=== PATIENT | male | born 1945 | race Caucasian/White ===

== ENCOUNTER 2022-10-21 16:33 | Observation (INO) | payer MEDICARE ==
[~2022-10-21] VITALS: Ht 177.8 cm; Wt 72.6 kg
[2022-10-21 19:54] LABS: BASOPHILS ABSOLUTE AUTO 0.06 K/mm3 (0.00-0.23); BASOPHILS PERCENT AUTO 1 % (0-2); EOSINOPHILS ABSOLUTE AUTO 0.05 K/mm3 (0.00-0.68); EOSINOPHILS PERCENT AUTO 1 % (0-6); Hematocrit 43.6 % (37.0-53.0); Hemoglobin 15.2 g/dL (13.5-17.5); IMMATURE GRAN ABSOLUTE AUTO 0.02 K/mm3 (0.00-0.10); IMMATURE GRAN PERCENT AUTO 0 % (0-1); LYMPHOCYTES ABSOLUTE AUTO 1.34 K/mm3 (0.84-5.20); LYMPHOCYTES PERCENT AUTO 18 % (21-46); MONOCYTES ABSOLUTE AUTO 0.66 K/mm3 (0.16-1.47); MONOCYTES PERCENT AUTO 9 % (4-13); Mean Corpuscular HGB 30.9 pg (26.0-34.0); Mean Corpuscular HGB Conc 34.9 g/dL (31.5-36.5); Mean Corpuscular Volume 89 fL (80-100); Mean Platelet Volume 10.7 fL (9.1-12.4); NEUTROPHILS ABSOLUTE AUTO 5.34 K/mm3 (1.96-9.15); NEUTROPHILS PERCENT AUTO 72 % (41-73); Platelet Count 134 K/mm3 (150-400); RDW Coefficient Variation 12.4 % (11.7-14.2); Red Blood Cell Count 4.92 M/mm3 (4.30-5.90); White Blood Cell Count 7.47 K/mm3 (4.00-11.30)
[2022-10-21] MEDS ORDERED: LISI5 PO (20:06)
[2022-10-21] MEDS ORDERED: LEVSOD25 PO (20:07)
[2022-10-21 20:12] LABS: Albumin, Blood 3.9 g/dL (3.4-5.0); Albumin/Globulin Ratio 1.1 (0.8-1.8); Bilirubin, Total 1.7 mg/dL (0.1-1.0); Calcium, Blood 9.6 mg/dL (8.5-10.1); Creatinine, Blood 1.16 mg/dL (0.60-1.20); Globulin, Blood 3.4 g/dL (2.2-4.0); Potassium, Blood 4.4 mmol/L (3.5-5.5); Total Protein, Blood 7.3 g/dL (6.4-8.2)
[2022-10-21 20:23] LABS: International Normalized Ratio 0.98; Prothrombin Time Results 10.3 Sec (9.7-11.5)
--- NOTE | 2022-10-22 06:44 | NUR ---
ADMITTED S/P FALL WITH DX SAH. A/OX4; CALM AND COOPERATIVE. TELE: SR 70s TO 80s C/O MILD "TOLERABLE" 2/10 PAIN TO L SHOULDER AND SCATTERED BRUISING; PRN TYLENOL GIVEN; ASLEEP AT REASSESSMENT. BASELINE MOBILITY IS IND WITH CANE. SLEEP PROMOTED. CALL LIGHT IN REACH; ENCOURAGED TO MAKE NEEDS KNOWN. BED ALARM SET.
--- NOTE | 2022-10-22 16:35 | NUR ---
SHIFT SUMMARY: NO ACUTE EVENTS. NO S/S OF ETOH W/D YET. NO EVENTS ON TELEMETRY, SR IN THE 60'S. C/O PAIN IN L SHOULDER; MEDICATED WITH TYLENOL WITH RELIEF. NEURO CHECK SHOWS WEAKNESS IN L HAND AND BLE, SLUGGISH 1 MM PUPILS BILATERALLY. DENIES NAUSEA. GETTING UP TO CHAIR AND AMBULATING WITH 1 PERSON, FWW, AND GAIT BELT, SHORT DISTANCES. WORKED WITH PHYSICAL THERAPY.
--- NOTE | 2022-10-22 22:57 | NUR ---
A/OX4; FORGETFUL/ REPETATIVE, CALM AND COOPERATIVE. TELE: SB / SR WITH HR 50s TO 60s C/O MILD "TOLERABLE" 2/10 PAIN TO L SHOULDER AND TO SCATTERED BRUISING; PRN TYLENOL GIVEN; ASLEEP AT REASSESSMENT. 1X ASSIST WITH GAITBELT AND CANE TO BR. SLEEP PROMOTED. CALL LIGHT IN REACH; ENCOURAGED TO MAKE NEEDS KNOWN. BED ALARM SET.
[2022-10-23 11:10] LABS: Albumin, Blood 3.8 g/dL (3.4-5.0); Anion Gap 7 mmol/L (6-16); Blood Urea Nitrogen 25 mg/dL (8-24); Bun/Creatinine Ratio 21.7 (12.0-20.0); CO2, Blood 24 mmol/L (21-32); Calcium, Blood 9.6 mg/dL (8.5-10.1); Chloride, Blood 106 mmol/L (98-108); Creatinine, Blood 1.15 mg/dL (0.60-1.20); Glomerular Filtration Rate 66 (60-); Glucose, Blood 174 mg/dL (70-99); Magnesium, Blood 2.1 mg/dL (1.6-2.4); Phosphorus, Blood 2.3 mg/dL (2.5-4.9); Potassium, Blood 3.8 mmol/L (3.5-5.5); Sodium, Blood 137 mmol/L (136-145)
--- NOTE | 2022-10-23 17:35 | NUR ---
SHIFT SUMMARY- PT IS ALERT PLESANT AND COOPERATIVE. HIS BLOOD PRESSURE WAS ELEVATED THIS MORNING BUT WAS IN THE LOW 100'S SBP, NOTIFIED DR. ARNOLD OF [facility]. WORKED WITH PT THIS AFTERNOON AND TOLERATED WELL. BEDDING CHANGED BUT VT REFUSED A SHOWER THIS SHIFT. HIS BED IS IN THE LOW POSITION AND CALL LIGHT IS WITIN REACH.
--- NOTE | 2022-10-24 05:07 | NUR ---
A/OX4; FORGETFUL/ REPETATIVE, CALM AND COOPERATIVE. TELE: SR WITH HR 60s DENIES PAIN AT THIS TIME. NO S/S OF ALCOHOL WITHDRAWAL PRESENT AT THSI TIME. 1X ASSIST WITH GAITBELT AND CANE TO BR. SLEEP PROMOTED. CALL LIGHT IN REACH; ENCOURAGED TO MAKE NEEDS KNOWN. BED ALARM SET.
[2022-10-24 14:42] LABS: BASOPHILS ABSOLUTE AUTO 0.05 K/mm3 (0.00-0.23); BASOPHILS PERCENT AUTO 1 % (0-2); EOSINOPHILS ABSOLUTE AUTO 0.09 K/mm3 (0.00-0.68); EOSINOPHILS PERCENT AUTO 1 % (0-6); Hematocrit 43.9 % (37.0-53.0); Hemoglobin 14.9 g/dL (13.5-17.5); IMMATURE GRAN ABSOLUTE AUTO 0.03 K/mm3 (0.00-0.10); IMMATURE GRAN PERCENT AUTO 0 % (0-1); LYMPHOCYTES PERCENT AUTO 20 % (21-46); MONOCYTES ABSOLUTE AUTO 0.73 K/mm3 (0.16-1.47); MONOCYTES PERCENT AUTO 10 % (4-13); Mean Corpuscular HGB 30.5 pg (26.0-34.0); Mean Corpuscular HGB Conc 33.9 g/dL (31.5-36.5); Mean Corpuscular Volume 90 fL (80-100); Mean Platelet Volume 10.8 fL (9.1-12.4); NEUTROPHILS ABSOLUTE AUTO 5.19 K/mm3 (1.96-9.15); NEUTROPHILS PERCENT AUTO 68 % (41-73); Platelet Count 130 K/mm3 (150-400); RDW Coefficient Variation 12.3 % (11.7-14.2); RDW Standard Deviation 40.4 fL (35.1-46.3); Red Blood Cell Count 4.89 M/mm3 (4.30-5.90); White Blood Cell Count 7.59 K/mm3 (4.00-11.30)
--- NOTE | 2022-10-24 14:50 | NUR ---
Upon receiving a referral for spiritual care, I visited the patient. Patient is sitting on a chair and alert. Patient tells me about his fall, that he "drinks like a fish" and that he is an alcoholic. He shares about his life growing up in [place], [place], and then joining the [employer]. He then moved to [place] and then finally ending up in [place]. 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 He has a dtr, Charlene who is an RN in [place]. He talks about his spiritual journey beginning in his younger yrs in the [employer] but now, although very much a believer, has moved away from the high tenriism ways. Patient is pleasant and mindful of others. He voices his concerns about being able to successfully get free from alcohol. I normalize his struggle, reinforce helpful perspectives and plans, explore spiritual beliefs and provide therapeutic listening, gentle supervisor counseling and guidance and prayer. Patient displays evidence of greater confidnce in his ability to overcome his addiction. I hope to further assist patient on working a sustainable plan for addiction management once patient will DC. I will continue to remain available to patient and family.
[2022-10-24 15:00] LABS: Albumin, Blood 3.7 g/dL (3.4-5.0); Albumin/Globulin Ratio 1.1 (0.8-1.8); Bilirubin, Total 1.7 mg/dL (0.1-1.0); Bun/Creatinine Ratio 21.3 (12.0-20.0); Calcium, Blood 9.7 mg/dL (8.5-10.1); Creatinine, Blood 1.5 mg/dL (0.60-1.20); Globulin, Blood 3.3 g/dL (2.2-4.0); Magnesium, Blood 2.2 mg/dL (1.6-2.4); Phosphorus, Blood 2.9 mg/dL (2.5-4.9); Potassium, Blood 4.4 mmol/L (3.5-5.5)
--- NOTE | 2022-10-24 18:12 | NUR ---
SHIFT SUMMARY PT IS AOX2-4, WITH MOMENTS OF CONFUSION. HE HAD A CHANGE IN AMS THIS SHIFT, THE PROVIDER WAS NOTIFIED AND A STAT CT SCAN WAS ORDERED AND COMPLETED. [facility] SCORING IS IN PLACE. PT HAD A ROOM MATE VISIT TODAY AND SHE SEEMED ALSO A BIT ALTERED. SPOKE WITH THE DAUGHTER TODAY AND SHE IS WORKING ON FINDING HIM A DIFFERENT LIVING SITUATION ONCE DISCHARGED. PT IS CURRENTLY ABLE TO ANSWER QUESTIONS CORRECTLY AND SITTING UP, EATING DINNER. WILL REPORT TO ONCOMING NURSE.
--- NOTE | 2022-10-25 04:31 | NUR ---
SHIFT UNREMARKABLE. PATIENT SLEPT THROUGH MOST OF SHIFT OUTSIDE OF AWAKING ONCE TO USE THE BATHROOM. CALL LIGHT LEFT WITHIN REACH.
--- NOTE | 2022-10-25 16:30 | NUR ---
SHIFT SUMMARY NO ACUTE CHANGES THIS SHIFT. PT HAS BEEN COOPERATIVE AND FOLLOWING DIRECTIONS. HE IS AOX4. HE RECIEVED A SHOWER TODAY AND WAS UP IN THE CHAIR MOST OF THE MORNING. HE ALSO WORKED WITH PT TODAY, WALKING UP AND DOWN THE [facility]. WILL REPORT TO ONCOMING NURSE.
--- NOTE | 2022-10-26 04:09 | NUR ---
SHIFT UNREMARKABLE. PATIENT AOX4 THROUGHOUT EVENING. SLEPT THROUGH MOST OF SHIFT. CALL LIGHT LEFT WITHIN REACH .
--- NOTE | 2022-10-26 04:41 | NUR ---
WHILE COVERING FOR PRIMARY RN TO TAKE LUNCH, THIS RN ASSISTED PT TO BATHROOM. HE WAS BACKING UP TO THE TOILET HE EXCLAIMED "OW!" AND RUBBED RIGHT ELBOW. LARGE HEMATOMA. PT ALREADY HAD LARGE BRUISING AROUND RIGHT ELBOW SECONDARY TO RECENT FALL SO UNSURE IF NEW OR OLD. COVERED WITH TEGADERM IN CASE HEMATOMA OPENED AND NOTIFIED PRIMARY RN WHEN HE RETURNED FROM LUNCH.
[2022-10-26 05:46] LABS: Bun/Creatinine Ratio 28.8 (12.0-20.0); Calcium, Blood 9.5 mg/dL (8.5-10.1); Creatinine, Blood 1.39 mg/dL (0.60-1.20); Potassium, Blood 4.7 mmol/L (3.5-5.5)
--- NOTE | 2022-10-26 18:33 | NUR ---
NO ACUTE CHANGES THIS SHIFT. PATIENT AWAITING PLACEMENT AT [facility]. VSS, ON RA. SB IN THE 40-50'S TODAY ON TELE. MULTIPLE SKIN ISSUES, WITH LARGE BLOOD BLISTER TO R ELBOW AND SKIN TEARS TO L ARM. PATIENT WORKED WITH PT/OT TODAY. U WITH FWW AND 1 ASSIST. CONTINENT OF URINE/STOOL. VERY PLEASANT AND COOPERATIVE WITH CARE, USES CALL LIGHT APPROPRIATELY FOR ASSISTANCE.
--- NOTE | 2022-10-27 04:35 | NUR ---
SHIFT SUMMARY PATIENT HAD NO ACUTE CHANGES. AXOX 4 AND ONE ASSIST WITH FWW TO BR. TEST KITCHEN HOME ECONOMIST REPORTED NSR W/BBB @ 80 AT START OF SHIFT AND SB 40'S-50'S LATER IN SHIFT. PIV REMAINS INTACT. SCATTER BRUSING T/O. SKIN TEAR TO L ARM AND MEPILEX ON RIGHT ELBOW BLISTER. DENIES PAIN, SOB, AND N/V. VSS/AFEBRILE. WATCHED TV FIRST PART OF SHIFT. CALL LIGHT IN REACH. BED IN LOWEST POSITION. WILL CONTINUE TO MONITOR UNTIL DAY SHIFT NURSE ASSUMES CARE.
[2022-10-27 12:04] LABS: SARS-Cov-2 (COVID-19) PCR, MMC NEGATIVE (NEGATIVE)
[2022-10-27] MEDS ORDERED: Acetaminophen650 M1 PO (12:12)
[2022-10-27] MEDS ORDERED: MULVITA PO (12:13)
[2022-10-27] MEDS ORDERED: B-1100 M1 PO (12:13)
--- NOTE | 2022-10-27 13:58 | NUR ---
PATIENT D/C'D TO [facility], REPORT CALLED TO FACILITY. PATIENT TRANSPORTED VIA [facility]. DC PACKET SENT WITH TELEPHONIC NURSE. PATIENT DENIES ANY FURTER QUESTIONS OR CONCERNS. HE NOTIFIED FAMILY OF DC.
== END 2022-10-27 13:58 ==
LOC: ER 16:33 → MEDS 16:34
PROVIDERS: Internal Medicine; Student in an Organized Health Care Education/Training Program; ADMIT Family Medicine
DX: S06.6XAA Traumatic subarachnoid hemorrhage with loss of consciousness status unknown, initial encounter (principal); S05.10XA Contusion of eyeball and orbital tissues, unspecified eye, initial encounter; W19.XXXA Unspecified fall, initial encounter; I10 Essential (primary) hypertension; N17.9 Acute kidney failure, unspecified; R26.9 Unspecified abnormalities of gait and mobility; F10.10 Alcohol abuse, uncomplicated; Z20.822 Contact with and (suspected) exposure to COVID-19
CPT/HCPCS: 36415; 70450; 73030; 80048; 80053; 80069; 82140; 83735; 84100; 84443; 85025; 85610; 90471; 90714; 93005; 93010; 96374; 96376; 97110; 97110-CO; 97112; 97116; 97116-CQ; 97161; 97165; 97530; 97530-CQ; 97535; 97535-CO; 99285-25; A9270; G0378; J0360; U0004

== ENCOUNTER 2024-04-27 12:41 | Emergency (ER) | payer OTHER ==
[~2024-04-27] VITALS: Ht 177.8 cm; Wt 74.8 kg
[~2024-04-27 12:41] MED LIST: Acetaminophen650 M1 PO; B-1100 M1 PO; LEVSOD25 PO; LISI5 PO; MULVITA PO
[2024-04-27 12:50] VITALS: BP 123/87
[2024-04-27] MEDS ORDERED: LISI5 PO (14:45)
[2024-04-27] MEDS ORDERED: CEPH500 PO (14:45)
== END 2024-04-27 15:05 | disposition home or self-care (01) ==
LOC: ER 12:41
DX: S43.401A Unspecified sprain of right shoulder joint, initial encounter (principal); L03.113 Cellulitis of right upper limb; Z76.0 Encounter for issue of repeat prescription; I10 Essential (primary) hypertension; W01.0XXA Fall on same level from slipping, tripping and stumbling without subsequent striking against object, initial encounter; Z79.899 Other long term (current) drug therapy
CPT/HCPCS: 99283